=== PATIENT | male | born 1965 | race Caucasian/White ===

== ENCOUNTER 2018-07-06 16:34 | Inpatient (IN) | payer OTHER ==
[2018-07-06 20:01] LABS: ADD MAN DIFF? NO
[2018-07-06] MEDS: ONDANSETRON 4 MG INJ IV ×2 (20:01→23:34)
[2018-07-06] MEDS: morphine 4 MG/ML VIAL IV (20:01)
[2018-07-06] MEDS: SODIUM CHLORIDE 0.9% 1L BAG IV* (20:01)
[2018-07-06] MEDS: CIPROFLOXACIN 400MG/D5W 200 ML IVPB (20:02)
[2018-07-06] MEDS: metroNIDAZOLE 500 MG/NS (PMX) 100 ML IVPB (20:02)
[2018-07-06 20:06] LABS: WHITE BLOOD COUNT 8.2 10^3/ul (4.8-10.8)
[2018-07-06 20:06] LABS: BASOPHILS % 0.1 % (0.0-2.0); EOSINOPHILS # 0.1 10^3/ul (0.0-0.5); EOSINOPHILS % 0.7 % (0.0-7.0); HEMATOCRIT 44.9 % (42.0-52.0); HEMOGLOBIN 15.3 g/dl (14.0-18.0); LYMPHOCYTES # 0.9 10^3/ul (0.8-2.9); MEAN CORPUSCULAR HEMOGLOBIN 29.3 pg (29.0-33.0); MEAN CORPUSCULAR HGB CONC 34.1 g/dl (32.0-37.0); MEAN CORPUSCULAR VOLUME 85.9 fl (82.0-101.0); MEAN PLATELET VOLUME 9.5 fl (7.4-10.4); MONOCYTE # 0.5 10^3/ul (0.3-0.9); MONOCYTES % 6.5 % (0.0-11.0); NEUTROPHIL # 6.6 10^3/ul (1.6-7.5); PLATELET COUNT 249 10^3/UL (140-415); RED BLOOD COUNT 5.23 10^6/ul (4.70-6.10)
[2018-07-06 20:20] LABS: INR 1.09; PROTIME 14.3 Sec (11.9-14.9); PT RATIO 1.1
[2018-07-06 20:21] LABS: PARTIAL THROMBOPLASTIN TIME 37.4 Sec (23.0-35.0)
[2018-07-06 20:23] LABS: LACTIC ACID 0.8 mmol/L (0.5-2.0)
[2018-07-06 20:24] LABS: ALANINE AMINOTRANSFERASE 57 IU/L (13-69); ALBUMIN 4.6 g/dl (3.3-4.9); ALBUMIN/GLOBULIN RATIO 1.43; ALKALINE PHOSPHATASE 72 IU/L (42-121); AMYLASE 47 U/L (11-123); ANION GAP 12 (5-13); ASPARTATE AMINO TRANSFERASE 56 IU/L (15-46); BILIRUBIN,INDIRECT 0.5 mg/dl (0-1.1); BILIRUBIN,TOTAL 0.5 mg/dl (0.2-1.3); BLOOD UREA NITROGEN 25 mg/dl (7-20); CALCIUM 9.7 mg/dl (8.4-10.2); CARBON DIOXIDE 26 mmol/L (21-31); CHLORIDE 106 mmol/L (97-110); CREATININE 2.16 mg/dl (0.61-1.24); GLUCOSE 113 mg/dl (70-220); LIPASE 38 U/L (23-300); POTASSIUM 4.1 mmol/L (3.5-5.1); SODIUM 144 mmol/L (135-144); TOTAL PROTEIN 7.8 g/dl (6.1-8.1)
[2018-07-06 20:35] LABS: TROPONIN-I < 0.012 ng/ml (0.000-0.120)
[2018-07-06] MEDS: HYDROmorphONE 1 MG/ML SYG IV (22:49)
[2018-07-06] MEDS ORDERED: morphine 2 MG INJ IV (23:00)
[2018-07-06] MEDS ORDERED: BISACODYL (EC) 5 MG TAB PO (23:00)
[2018-07-06] MEDS ORDERED: DOCUSATE SODIUM 100 MG CAP PO (23:00)
[2018-07-06] MEDS ORDERED: NACL 0.9% 3 ML SYG IV (23:00)
[2018-07-06] MEDS ORDERED: ONDANSETRON 4 MG INJ IV ×2 (23:00)
[2018-07-06] MEDS ORDERED: ACETAMINOPHEN 325 MG TAB PO (23:00)
[2018-07-07] MEDS: SOD CHLORIDE 0.9% 1,000 ML IV ×3 (01:17→17:03)
[2018-07-07] MEDS: KETOROLAC 30 MG INJ IV (03:16)
[2018-07-07] MEDS: PANTOPRAZOLE 40 MG INJ IV (05:21)
[2018-07-07] MEDS: PIPER-TAZO 3.375 GM IV (PMX) 100 ML IVPB ×3 (05:21→21:07)
[2018-07-07 05:30] LABS: ADD MAN DIFF? NO
[2018-07-07 05:38] LABS: BASOPHILS % 0.1 % (0.0-2.0); EOSINOPHILS % 0.4 % (0.0-7.0); HEMATOCRIT 39.8 % (42.0-52.0); HEMOGLOBIN 13.2 g/dl (14.0-18.0); LYMPHOCYTES # 0.9 10^3/ul (0.8-2.9); LYMPHOCYTES % 12.4 % (15.0-51.0); MEAN CORPUSCULAR HEMOGLOBIN 29.1 pg (29.0-33.0); MEAN CORPUSCULAR HGB CONC 33.2 g/dl (32.0-37.0); MEAN CORPUSCULAR VOLUME 87.7 fl (82.0-101.0); MEAN PLATELET VOLUME 10.1 fl (7.4-10.4); MONOCYTE # 0.4 10^3/ul (0.3-0.9); MONOCYTES % 5.7 % (0.0-11.0); NEUTROPHIL # 5.7 10^3/ul (1.6-7.5); NEUTROPHILS % 81.1 % (39.0-77.0); PLATELET COUNT 229 10^3/UL (140-415); RED BLOOD COUNT 4.54 10^6/ul (4.70-6.10); RED CELL DISTRIBUTION WIDTH 12.5 % (11.5-14.5)
[2018-07-07 05:53] LABS: HEMOGLOBIN A1C 5.3 % (0-5.9)
[2018-07-07] MEDS ORDERED: metroNIDAZOLE 500 MG/NS (PMX) 100 ML IVPB (06:00)
[2018-07-07 06:02] LABS: ALANINE AMINOTRANSFERASE 52 IU/L (13-69); ALBUMIN 3.2 g/dl (3.3-4.9); ALBUMIN/GLOBULIN RATIO 1.03; ALKALINE PHOSPHATASE 50 IU/L (42-121); ANION GAP 5 (5-13); ASPARTATE AMINO TRANSFERASE 40 IU/L (15-46); BILIRUBIN,INDIRECT 0.5 mg/dl (0-1.1); BILIRUBIN,TOTAL 0.5 mg/dl (0.2-1.3); BLOOD UREA NITROGEN 23 mg/dl (7-20); CARBON DIOXIDE 28 mmol/L (21-31); CHLORIDE 112 mmol/L (97-110); CHOL/HDL RATIO 3.6 RATIO; CHOLESTEROL 130 mg/dl (100-200); CREATININE 1.87 mg/dl (0.61-1.24); GLUCOSE 114 mg/dl (70-220); HDL CHOLESTEROL 36 mg/dl (28-71); LDL CHOLESTEROL,CALCULATED 81 mg/dl; MAGNESIUM 2.5 mg/dl (1.7-2.5); POTASSIUM 4.3 mmol/L (3.5-5.1); SODIUM 145 mmol/L (135-144); TOTAL PROTEIN 6.3 g/dl (6.1-8.1); TRIGLYCERIDES 64 mg/dl (0-149)
[2018-07-07] MEDS ORDERED: CIPROFLOXACIN 400MG/D5W 200 ML IVPB (09:00)
[2018-07-07 09:56] LABS: OSMOLALITY 307 mOsm/kg (280-295)
[2018-07-07 10:02] LABS: ADD UMIC YES; UR ASCORBIC ACID NEGATIVE (NEGATIVE); UR BILIRUBIN (Dip) NEGATIVE (NEGATIVE); UR BLOOD (Dip) NEGATIVE (NEGATIVE); UR CLARITY CLEAR (CLEAR); UR COLOR YELLOW (YELLOW); UR GLUCOSE (Dip) NEGATIVE (NEGATIVE); UR KETONES (Dip) NEGATIVE (NEGATIVE); UR LEUKOCYTE ESTERASE (Dip) TRACE Leu/ul (NEGATIVE); UR NITRITE (Dip) NEGATIVE (NEGATIVE); UR RBC 1 /HPF (0-5); UR SPECIFIC GRAVITY (Dip) 1.009 (1.003-1.030); UR TOTAL PROTEIN (Dip) NEGATIVE (NEGATIVE); UR UROBILINOGEN (Dip) NEGATIVE (NEGATIVE); UR WBC 2 /HPF (0-5)
[2018-07-07 10:26] LABS: SODIUM,URINE RANDOM 64 mmol/L (30-90)
[2018-07-07 10:30] LABS: CREATININE,URINE RANDOM 64.55 mg/dl (20-370); PROTEIN/CREAT RATIO 0.26 RATIO
[2018-07-07 10:35] LABS: OSMOLALITY,URINE 302 mOsm/kg (250-1200)
[2018-07-07 12:51] LABS: OCCULT BLOOD STOOL NEGATIVE (NEGATIVE)
[2018-07-08] MEDS: SOD CHLORIDE 0.9% 1,000 ML IV ×3 (01:43→15:32)
[2018-07-08 05:36] LABS: WHITE BLOOD COUNT 5.2 10^3/ul (4.8-10.8)
[2018-07-08 05:36] LABS: ADD MAN DIFF? NO; BASOPHILS % 0.2 % (0.0-2.0); EOSINOPHILS # 0.2 10^3/ul (0.0-0.5); EOSINOPHILS % 2.9 % (0.0-7.0); HEMATOCRIT 36.9 % (42.0-52.0); HEMOGLOBIN 12.3 g/dl (14.0-18.0); LYMPHOCYTES # 1.3 10^3/ul (0.8-2.9); LYMPHOCYTES % 24.7 % (15.0-51.0); MEAN CORPUSCULAR HEMOGLOBIN 29.4 pg (29.0-33.0); MEAN CORPUSCULAR HGB CONC 33.3 g/dl (32.0-37.0); MEAN CORPUSCULAR VOLUME 88.3 fl (82.0-101.0); MEAN PLATELET VOLUME 9.5 fl (7.4-10.4); MONOCYTE # 0.3 10^3/ul (0.3-0.9); MONOCYTES % 6.6 % (0.0-11.0); NEUTROPHIL # 3.4 10^3/ul (1.6-7.5); NEUTROPHILS % 65.4 % (39.0-77.0); PLATELET COUNT 220 10^3/UL (140-415); RED BLOOD COUNT 4.18 10^6/ul (4.70-6.10); RED CELL DISTRIBUTION WIDTH 12.4 % (11.5-14.5)
[2018-07-08 06:35] LABS: ANION GAP 5 (5-13); BLOOD UREA NITROGEN 20 mg/dl (7-20); CALCIUM 8.7 mg/dl (8.4-10.2); CARBON DIOXIDE 27 mmol/L (21-31); CHLORIDE 112 mmol/L (97-110); CREATININE 1.24 mg/dl (0.61-1.24); GLUCOSE 92 mg/dl (70-220); MAGNESIUM 2.4 mg/dl (1.7-2.5); POTASSIUM 4.1 mmol/L (3.5-5.1); SODIUM 144 mmol/L (135-144)
[2018-07-08] MEDS: PANTOPRAZOLE 40 MG INJ IV (06:36)
[2018-07-08] MEDS: PIPER-TAZO 3.375 GM IV (PMX) 100 ML IVPB ×3 (06:36→21:07)
[2018-07-08] MEDS: ACETAMINOPHEN 325 MG TAB PO (06:39)
[2018-07-09] MEDS: SOD CHLORIDE 0.9% 1,000 ML IV ×2 (00:41→03:27)
[2018-07-09] MEDS: PANTOPRAZOLE 40 MG INJ IV (05:53)
[2018-07-09] MEDS: PIPER-TAZO 3.375 GM IV (PMX) 100 ML IVPB (05:53)
== END 2018-07-09 12:50 | disposition home or self-care (01) | DRG 392 ==
LOC: E/R 16:34 → MS1 22:40 → TEL 07-07 12:20
DX: K57.32 Diverticulitis of large intestine without perforation or abscess without bleeding (principal); N17.9 Acute kidney failure, unspecified; E66.9 Obesity, unspecified; R00.1 Bradycardia, unspecified; E86.0 Dehydration; Z68.33 Body mass index [BMI] 33.0-33.9, adult
CPT/HCPCS: 36415; 74176; 76775; 80048; 80053; 80061; 81001; 81003; 82150; 82270; 82570; 83036; 83605; 83690; 83735; 83930; 83935; 84300; 84443; 84484; 85025; 85610; 85730; 87040; 87086; 93005; 93306; 96374; 96375; 99285-25

== ENCOUNTER 2018-08-02 19:04 | Emergency (ER) | payer OTHER ==
[2018-08-03 00:03] LABS: ADD MAN DIFF? NO; BASOPHILS % 0.2 % (0.0-2.0); EOSINOPHILS # 0.1 10^3/ul (0.0-0.5); HEMATOCRIT 36.8 % (42.0-52.0); HEMOGLOBIN 12.3 g/dl (14.0-18.0); LYMPHOCYTES # 1.7 10^3/ul (0.8-2.9); LYMPHOCYTES % 28.9 % (15.0-51.0); MEAN CORPUSCULAR HEMOGLOBIN 28.9 pg (29.0-33.0); MEAN CORPUSCULAR HGB CONC 33.4 g/dl (32.0-37.0); MEAN CORPUSCULAR VOLUME 86.4 fl (82.0-101.0); MEAN PLATELET VOLUME 9.1 fl (7.4-10.4); MONOCYTE # 0.6 10^3/ul (0.3-0.9); MONOCYTES % 9.4 % (0.0-11.0); NEUTROPHIL # 3.5 10^3/ul (1.6-7.5); NEUTROPHILS % 59.8 % (39.0-77.0); PLATELET COUNT 244 10^3/UL (140-415); RED BLOOD COUNT 4.26 10^6/ul (4.70-6.10); RED CELL DISTRIBUTION WIDTH 12.3 % (11.5-14.5)
[2018-08-03 00:03] LABS: WHITE BLOOD COUNT 5.9 10^3/ul (4.8-10.8)
[2018-08-03 00:18] LABS: ADD UMIC NO; UR ASCORBIC ACID NEGATIVE (NEGATIVE); UR BILIRUBIN (Dip) NEGATIVE (NEGATIVE); UR BLOOD (Dip) NEGATIVE (NEGATIVE); UR CLARITY CLEAR (CLEAR); UR COLOR STRAW (YELLOW); UR GLUCOSE (Dip) NEGATIVE (NEGATIVE); UR KETONES (Dip) NEGATIVE (NEGATIVE); UR LEUKOCYTE ESTERASE (Dip) NEGATIVE Leu/ul (NEGATIVE); UR NITRITE (Dip) NEGATIVE (NEGATIVE); UR SPECIFIC GRAVITY (Dip) 1.005 (1.003-1.030); UR TOTAL PROTEIN (Dip) NEGATIVE (NEGATIVE); UR UROBILINOGEN (Dip) NEGATIVE (NEGATIVE)
[2018-08-03 00:20] LABS: ALANINE AMINOTRANSFERASE 33 IU/L (13-69); ALBUMIN 3.9 g/dl (3.3-4.9); ALBUMIN/GLOBULIN RATIO 1.56; ALKALINE PHOSPHATASE 65 IU/L (42-121); ANION GAP 10 (5-13); ASPARTATE AMINO TRANSFERASE 20 IU/L (15-46); BILIRUBIN,INDIRECT 0.4 mg/dl (0-1.1); BILIRUBIN,TOTAL 0.4 mg/dl (0.2-1.3); BLOOD UREA NITROGEN 11 mg/dl (7-20); CARBON DIOXIDE 28 mmol/L (21-31); CHLORIDE 105 mmol/L (97-110); CREATININE 0.53 mg/dl (0.61-1.24); Estimated GFR > 60 mL/min (>60); GLUCOSE 101 mg/dl (70-220); LIPASE 51 U/L (23-300); POTASSIUM 3.4 mmol/L (3.5-5.1); SODIUM 143 mmol/L (135-144); TOTAL PROTEIN 6.4 g/dl (6.1-8.1)
[2018-08-03] MEDS: SOD CHLORIDE 0.9% 1,000 ML IV (00:48)
[2018-08-03] MEDS: ONDANSETRON 4 MG INJ IV (00:48)
[2018-08-03] MEDS: HYDROmorphONE 1 MG/ML SYG IV (00:49)
[2018-08-03] MEDS: SOD CHLORIDE 0.9% 100 ML (01:11)
[2018-08-03] MEDS: IOHEXOL 300MG/ML 150 ML BTL (01:11)
[2018-08-03] MEDS: KETOROLAC 30 MG INJ IV (04:33)
[2018-08-03] MEDS: POTASSIUM CHLORIDE (SR) 20 MEQ TAB PO (04:34)
[2018-08-03] MEDS: AMOXICILLIN/CLAV 875 MG TAB PO (05:38)
== END 2018-08-03 06:14 | disposition home or self-care (01) ==
LOC: E/R 08-03 06:14 → FTE 19:04
DX: K57.32 Diverticulitis of large intestine without perforation or abscess without bleeding (principal); E87.6 Hypokalemia; M79.604 Pain in right leg; D64.9 Anemia, unspecified
CPT/HCPCS: 36415; 74177; 80053; 81003; 83690; 85025; 93970; 96374; 96375; 99285-25

== ENCOUNTER 2018-11-05 10:07 | Day surgery (SDC) | payer OTHER ==
[~2018-11-05 10:07] MED LIST: LIDOCAINE 2% (SDV) 5 ML INJ; PROPOFOL 200 MG INJ
[2018-11-05] MEDS ORDERED: PROPOFOL 40 ML (11:55)
== END 2018-11-05 13:57 | disposition home or self-care (01) ==
LOC: GIL 10:07
DX: Z12.11 Encounter for screening for malignant neoplasm of colon (principal); K29.30 Chronic superficial gastritis without bleeding; K21.9 Gastro-esophageal reflux disease without esophagitis; K64.8 Other hemorrhoids; K57.30 Diverticulosis of large intestine without perforation or abscess without bleeding; I10 Essential (primary) hypertension
CPT/HCPCS: 43239; 88305; 88312